=== PATIENT | female | born 1980 ===

== ENCOUNTER 2022-03-18 07:00 | Inpatient (IN) | payer OTHER ==
[~2022-03-18] VITALS: Ht 154.9 cm; Wt 59.0 kg
== END 2022-03-24 10:21 | disposition home or self-care (01) | DRG 743 ==
LOC: OB/GYN 03-23 06:00 → O/R 03-23 06:00 → SURG 03-23 07:00 → OB/GYN 03-23 09:54 → SURG 03-23 11:45 → OB/GYN 03-24 10:21
PROVIDERS: ADMIT Obstetrics & Gynecology; ATTEND Obstetrics & Gynecology
PROC: 0UT74ZZ Resection of Bilateral Fallopian Tubes, Percutaneous Endoscopic Approach (ICD-10-PCS; 2022-03-23)
PROC: 0UN74ZZ Release Bilateral Fallopian Tubes, Percutaneous Endoscopic Approach (ICD-10-PCS; 2022-03-23)
PROC: 0UN24ZZ Release Bilateral Ovaries, Percutaneous Endoscopic Approach (ICD-10-PCS; 2022-03-23)
PROC: 0DNW4ZZ Release Peritoneum, Percutaneous Endoscopic Approach (ICD-10-PCS; 2022-03-23)
PROC: 0UT94ZZ Resection of Uterus, Percutaneous Endoscopic Approach (ICD-10-PCS; principal; 2022-03-23 07:00)
DX: D25.1 Intramural leiomyoma of uterus (principal); N72 Inflammatory disease of cervix uteri; N80.0 Endometriosis of uterus; Z20.822 Contact with and (suspected) exposure to COVID-19